=== PATIENT | female | born 1960 | race Two or more races ===

== ENCOUNTER 2016-08-09 16:10 | Outpatient (CLI) | payer MEDICAID | END 2016-08-09 16:11 | disposition critical access hospital (66) | DX: R06.00 Dyspnea, unspecified (principal) | CPT/HCPCS: A0425; A0427 ==

== ENCOUNTER 2016-08-09 16:35 | Observation (INO) | payer MEDICAID ==
[2016-08-09] MEDS ORDERED: DEXAMETHASONE 10 MG/ML VIAL PO STA (17:06)
[2016-08-09] MEDS ORDERED: DEXAMETHASONE 10 MG/ML VIAL ONE ×2 (17:12)
[2016-08-09] MEDS ORDERED: ALBUTEROL NEB 2.5 MG/3 ML INH ONE ×3 (17:18→19:20)
[2016-08-09] MEDS: ALBUTEROL NEB 2.5 MG/3 ML INH STA ×2 (17:29→17:47)
[2016-08-09] MEDS ORDERED: ALBUTEROL NEB 2.5 MG/3 ML INH STA ×2 (18:51→19:24)
[2016-08-09] MEDS ORDERED: SODIUM CHLORIDE FLUSH 0.9% 10 ML SYRINGE IVP PRN (20:32)
[2016-08-09] MEDS: SODIUM CHLORIDE FLUSH 0.9% 10 ML SYRINGE IVP SCH (21:57)
[2016-08-09] MEDS: INSULIN ASPART 300 UNIT/3 ML PEN SUBQ SCH (22:34)
[2016-08-09] MEDS: IPRATROPIUM/ALBUTEROL 3 ML NEB INH SCH (22:56)
[2016-08-09] MEDS ORDERED: BENZOCAINE/MENTHOL LOZENGE MM PRN (23:05)
[2016-08-10] MEDS: ALBUTEROL NEB 2.5 MG/3 ML INH PRN ×3 (01:00→10:23)
[2016-08-10] MEDS: SODIUM CHLORIDE FLUSH 0.9% 10 ML SYRINGE IVP SCH ×2 (06:11→14:13)
[2016-08-10] MEDS: IPRATROPIUM/ALBUTEROL 3 ML NEB INH SCH ×3 (07:22→15:50)
[2016-08-10] MEDS ORDERED: predniSONE 20 MG TABLET PO SCH (08:00)
[2016-08-10] MEDS: INSULIN ASPART 300 UNIT/3 ML PEN SUBQ SCH ×2 (08:49→11:55)
[2016-08-10] MEDS ORDERED: POLYETHYLENE GLYCOL 3350 17 GM PACKET PO SCH (09:00)
[2016-08-10] MEDS ORDERED: ENOXAPARIN 40 MG/0.4 ML SYRINGE SUBQ SCH (09:00)
== END 2016-08-10 09:00 | disposition home or self-care (01) ==
DX: J45.901 Unspecified asthma with (acute) exacerbation (principal); I10 Essential (primary) hypertension; E03.9 Hypothyroidism, unspecified; E11.9 Type 2 diabetes mellitus without complications; Z77.22 Contact with and (suspected) exposure to environmental tobacco smoke (acute) (chronic); Z79.51 Long term (current) use of inhaled steroids; Z79.899 Other long term (current) drug therapy
CPT/HCPCS: 36415; 71020; 80053; 82803; 83036; 83690; 84484; 85025; 93005; 93010; 94640; 96372; 99283; 99284; A9270; G0378; J1650; J7512; J7613; J7620

== ENCOUNTER 2016-08-31 13:15 | Outpatient (CLI) | payer MEDICAID | END 2016-08-31 13:30 | disposition home or self-care (01) | DX: R07.89 Other chest pain (principal) ==

== ENCOUNTER 2016-09-11 02:42 | Outpatient (CLI) | payer MEDICAID | END 2016-09-11 02:43 | disposition critical access hospital (66) | LOC: EMS 02:42 | PROVIDERS: ATTEND Surgery | DX: R06.00 Dyspnea, unspecified (principal) | CPT/HCPCS: A0425; A0427 ==

== ENCOUNTER 2016-09-11 03:02 | Inpatient (IN) | payer MEDICAID ==
[2016-09-11] MEDS ORDERED: MORPHINE 2 MG/ML SYRINGE IVP PRN (05:00)
[2016-09-11] MEDS ORDERED: oxyCODONE 5 MG TABLET PO PRN (05:00)
[2016-09-11] MEDS ORDERED: IPRATROPIUM/ALBUTEROL 3 ML NEB INH PRN (05:00)
[2016-09-11] MEDS ORDERED: ZOLPIDEM 5 MG TABLET PO PRN (05:00)
[2016-09-11] MEDS ORDERED: ACETAMINOPHEN 325 MG TABLET PO PRN (05:00)
[2016-09-11] MEDS ORDERED: LEVALBUTEROL 1.25 MG INH PRN (05:33)
[2016-09-11] MEDS: IPRATROPIUM/ALBUTEROL 3 ML NEB INH SCH ×4 (05:39→16:48)
[2016-09-11] MEDS ORDERED: IOPAMIDOL-300 100 ML VIAL IVP ONE (07:02)
[2016-09-11] MEDS: SODIUM CHLORIDE FLUSH 0.9% 10 ML SYRINGE IVP SCH ×3 (07:39→21:44)
[2016-09-11] MEDS: methylPREDNISolone SUCCINATE 40 MG/ML VIAL IVP SCH ×3 (07:39→21:43)
[2016-09-11] MEDS: PANTOPRAZOLE 40 MG TABLET PO SCH (07:39)
[2016-09-11] MEDS: LEVOTHYROXINE 125 MCG TABLET PO SCH (07:40)
[2016-09-11] MEDS ORDERED: INSULIN ASPART 300 UNIT/3 ML PEN SUBQ SCH ×3 (08:00→12:00)
[2016-09-11] MEDS: ENOXAPARIN 40 MG/0.4 ML SYRINGE SUBQ SCH ×2 (08:15→08:27)
[2016-09-11] MEDS: LISINOPRIL 5 MG TABLET PO SCH (08:15)
[2016-09-11] MEDS: POLYETHYLENE GLYCOL 3350 17 GM PACKET PO SCH (08:23)
[2016-09-11] MEDS ORDERED: DOXYCYCLINE 100 MG TABLET PO SCH (09:00)
[2016-09-11] MEDS: SODIUM CHLORIDE INHALATION 3 ML NEB INH PRN ×2 (11:01→23:05)
[2016-09-11] MEDS: INSULIN ASPART 300 UNIT/3 ML PEN SUBQ SCH ×3 (12:01→21:43)
[2016-09-11] MEDS ORDERED: SODIUM CHLORIDE 0.9% 250 ML IV ONE (15:03)
[2016-09-11] MEDS: cefTRIAXone 1 GM in SODIUM CHLORIDE 0.9% MINIBAG 100 ML IV SCH (15:16)
[2016-09-11] MEDS: SODIUM CHLORIDE FLUSH 0.9% 10 ML SYRINGE IVP PRN ×3 (15:16→16:55)
[2016-09-11] MEDS: AZITHROMYCIN INJ 500 MG in SODIUM CHLORIDE 0.9% 250 ML IV SCH (16:21)
[2016-09-11] MEDS: ONDANSETRON 4 MG/2 ML VIAL IVP PRN (16:52)
[2016-09-11] MEDS: ATORVASTATIN 40 MG TABLET PO SCH (21:41)
[2016-09-11] MEDS: diazePAM 5 MG TABLET PO SCH ×2 (21:41)
[2016-09-11] MEDS: MONTELUKAST 10 MG TABLET PO SCH (21:42)
[2016-09-11] MEDS: INSULIN GLARGINE 300 UNIT/3 ML PEN SUBQ SCH (21:42)
[2016-09-11] MEDS: LEVALBUTEROL 1.25 MG INH PRN (23:05)
[2016-09-12] MEDS: IPRATROPIUM/ALBUTEROL 3 ML NEB INH SCH ×4 (04:00→19:30)
[2016-09-12] MEDS: methylPREDNISolone SUCCINATE 40 MG/ML VIAL IVP SCH ×3 (06:10→20:35)
[2016-09-12] MEDS: SODIUM CHLORIDE FLUSH 0.9% 10 ML SYRINGE IVP SCH ×3 (06:10→17:54)
[2016-09-12] MEDS: LEVOTHYROXINE 125 MCG TABLET PO SCH (06:11)
[2016-09-12] MEDS: PANTOPRAZOLE 40 MG TABLET PO SCH (06:14)
[2016-09-12] MEDS: INSULIN ASPART 300 UNIT/3 ML PEN SUBQ SCH ×4 (08:17→20:36)
[2016-09-12] MEDS: LISINOPRIL 5 MG TABLET PO SCH (08:53)
[2016-09-12] MEDS: ENOXAPARIN 40 MG/0.4 ML SYRINGE SUBQ SCH (08:54)
[2016-09-12] MEDS: POLYETHYLENE GLYCOL 3350 17 GM PACKET PO SCH (08:55)
[2016-09-12] MEDS: cefTRIAXone 1 GM in SODIUM CHLORIDE 0.9% MINIBAG 100 ML IV SCH (08:57)
[2016-09-12] MEDS: LEVALBUTEROL 1.25 MG INH PRN (11:35)
[2016-09-12] MEDS: SODIUM CHLORIDE INHALATION 3 ML NEB INH PRN (11:35)
[2016-09-12] MEDS ORDERED: INSULIN ASPART 300 UNIT/3 ML PEN SUBQ SCH (13:30)
[2016-09-12] MEDS: AZITHROMYCIN INJ 500 MG in SODIUM CHLORIDE 0.9% 250 ML IV SCH (16:44)
[2016-09-12] MEDS: ONDANSETRON 4 MG/2 ML VIAL IVP PRN (17:54)
[2016-09-12] MEDS: LORazepam 2 MG/ML SYRINGE IVP PRN (20:35)
[2016-09-12] MEDS: MONTELUKAST 10 MG TABLET PO SCH (20:35)
[2016-09-12] MEDS: SODIUM CHLORIDE FLUSH 0.9% 10 ML SYRINGE IVP PRN (20:35)
[2016-09-12] MEDS: guaiFENesin/CODEINE 5 ML UDC PO PRN (20:35)
[2016-09-12] MEDS: ATORVASTATIN 40 MG TABLET PO SCH (20:36)
[2016-09-12] MEDS: INSULIN GLARGINE 300 UNIT/3 ML PEN SUBQ SCH (20:37)
[2016-09-13] MEDS: IPRATROPIUM/ALBUTEROL 3 ML NEB INH PRN ×3 (01:10→20:38)
[2016-09-13] MEDS: SODIUM CHLORIDE FLUSH 0.9% 10 ML SYRINGE IVP SCH ×3 (06:06→16:46)
[2016-09-13] MEDS: methylPREDNISolone SUCCINATE 40 MG/ML VIAL IVP SCH ×3 (06:06→21:42)
[2016-09-13] MEDS: LEVOTHYROXINE 125 MCG TABLET PO SCH (06:55)
[2016-09-13] MEDS: guaiFENesin/CODEINE 5 ML UDC PO PRN ×3 (06:55→21:42)
[2016-09-13] MEDS: PANTOPRAZOLE 40 MG TABLET PO SCH (06:55)
[2016-09-13] MEDS: IPRATROPIUM/ALBUTEROL 3 ML NEB INH SCH ×3 (08:00→20:56)
[2016-09-13] MEDS: INSULIN ASPART 300 UNIT/3 ML PEN SUBQ SCH ×4 (08:55→21:45)
[2016-09-13] MEDS: cefTRIAXone 1 GM in SODIUM CHLORIDE 0.9% MINIBAG 100 ML IV SCH (08:57)
[2016-09-13] MEDS: ENOXAPARIN 40 MG/0.4 ML SYRINGE SUBQ SCH (08:58)
[2016-09-13] MEDS: POLYETHYLENE GLYCOL 3350 17 GM PACKET PO SCH (08:58)
[2016-09-13] MEDS: LISINOPRIL 5 MG TABLET PO SCH (09:02)
[2016-09-13] MEDS: LORazepam 2 MG/ML SYRINGE IVP PRN ×2 (09:33→18:06)
[2016-09-13] MEDS: SODIUM CHLORIDE FLUSH 0.9% 10 ML SYRINGE IVP PRN (09:33)
[2016-09-13] MEDS: ONDANSETRON 4 MG/2 ML VIAL IVP PRN (16:44)
[2016-09-13] MEDS: AZITHROMYCIN INJ 500 MG in SODIUM CHLORIDE 0.9% 250 ML IV SCH (16:44)
[2016-09-13] MEDS: ATORVASTATIN 40 MG TABLET PO SCH (21:42)
[2016-09-13] MEDS: MONTELUKAST 10 MG TABLET PO SCH (21:42)
[2016-09-13] MEDS: INSULIN GLARGINE 300 UNIT/3 ML PEN SUBQ SCH (21:45)
[2016-09-14] MEDS: IPRATROPIUM/ALBUTEROL 3 ML NEB INH SCH ×6 (00:53→20:11)
[2016-09-14] MEDS: IPRATROPIUM/ALBUTEROL 3 ML NEB INH PRN (02:33)
[2016-09-14] MEDS: guaiFENesin/CODEINE 5 ML UDC PO PRN (03:46)
[2016-09-14] MEDS: LEVOTHYROXINE 125 MCG TABLET PO SCH (06:07)
[2016-09-14] MEDS: methylPREDNISolone SUCCINATE 40 MG/ML VIAL IVP SCH ×3 (06:07→20:23)
[2016-09-14] MEDS: SODIUM CHLORIDE FLUSH 0.9% 10 ML SYRINGE IVP SCH ×4 (06:08→20:33)
[2016-09-14] MEDS: PANTOPRAZOLE 40 MG TABLET PO SCH (06:08)
[2016-09-14] MEDS: cefTRIAXone 1 GM in SODIUM CHLORIDE 0.9% MINIBAG 100 ML IV SCH (08:13)
[2016-09-14] MEDS: LISINOPRIL 5 MG TABLET PO SCH (08:20)
[2016-09-14] MEDS: INSULIN ASPART 300 UNIT/3 ML PEN SUBQ SCH ×4 (08:21→20:31)
[2016-09-14] MEDS: ENOXAPARIN 40 MG/0.4 ML SYRINGE SUBQ SCH (08:22)
[2016-09-14] MEDS: POLYETHYLENE GLYCOL 3350 17 GM PACKET PO SCH (08:23)
[2016-09-14] MEDS: AZITHROMYCIN INJ 500 MG in SODIUM CHLORIDE 0.9% 250 ML IV SCH (16:48)
[2016-09-14] MEDS: ONDANSETRON 4 MG/2 ML VIAL IVP PRN (16:53)
[2016-09-14] MEDS ORDERED: CALCIUM CARBONATE CHEW 500 MG TABLET PO PRN (18:43)
[2016-09-14] MEDS: LORazepam 2 MG/ML SYRINGE IVP PRN (19:28)
[2016-09-14] MEDS ORDERED: PROCHLORPERAZINE 10 MG/2 ML VIAL IVP PRN (20:16)
[2016-09-14] MEDS ORDERED: LORazepam 2 MG/ML SYRINGE IVP PRN (20:16)
[2016-09-14] MEDS: MONTELUKAST 10 MG TABLET PO SCH (20:24)
[2016-09-14] MEDS: ATORVASTATIN 40 MG TABLET PO SCH (20:24)
[2016-09-14] MEDS: INSULIN GLARGINE 300 UNIT/3 ML PEN SUBQ SCH (20:25)
[2016-09-15] MEDS: IPRATROPIUM/ALBUTEROL 3 ML NEB INH PRN (00:40)
[2016-09-15] MEDS: PANTOPRAZOLE 40 MG TABLET PO SCH (06:17)
[2016-09-15] MEDS: LEVOTHYROXINE 125 MCG TABLET PO SCH (06:17)
[2016-09-15] MEDS: methylPREDNISolone SUCCINATE 40 MG/ML VIAL IVP SCH (06:17)
[2016-09-15] MEDS: SODIUM CHLORIDE FLUSH 0.9% 10 ML SYRINGE IVP SCH (06:18)
[2016-09-15] MEDS: IPRATROPIUM/ALBUTEROL 3 ML NEB INH SCH (07:30)
[2016-09-15] MEDS: POLYETHYLENE GLYCOL 3350 17 GM PACKET PO SCH (08:49)
[2016-09-15] MEDS: ENOXAPARIN 40 MG/0.4 ML SYRINGE SUBQ SCH (08:49)
[2016-09-15] MEDS: cefTRIAXone 1 GM in SODIUM CHLORIDE 0.9% MINIBAG 100 ML IV SCH (08:49)
[2016-09-15] MEDS: LISINOPRIL 5 MG TABLET PO SCH (08:54)
[2016-09-15] MEDS: INSULIN ASPART 300 UNIT/3 ML PEN SUBQ SCH (08:59)
== END 2016-09-15 11:00 | disposition home or self-care (01) | DRG 189 ==
DX: J96.21 Acute and chronic respiratory failure with hypoxia (principal); J18.9 Pneumonia, unspecified organism; J45.901 Unspecified asthma with (acute) exacerbation; E11.9 Type 2 diabetes mellitus without complications; I10 Essential (primary) hypertension; E78.5 Hyperlipidemia, unspecified; F41.9 Anxiety disorder, unspecified; Z79.84 Long term (current) use of oral hypoglycemic drugs; E03.9 Hypothyroidism, unspecified; Z90.710 Acquired absence of both cervix and uterus; Z83.3 Family history of diabetes mellitus; Z82.49 Family history of ischemic heart disease and other diseases of the circulatory system; Z77.22 Contact with and (suspected) exposure to environmental tobacco smoke (acute) (chronic)

== ENCOUNTER 2016-11-26 10:40 | Outpatient (CLI) | payer MEDICAID | END 2016-11-26 10:41 | disposition critical access hospital (66) | LOC: EMS 10:40 | PROVIDERS: ATTEND Surgery | DX: R06.00 Dyspnea, unspecified (principal) | CPT/HCPCS: A0425; A0427 ==

== ENCOUNTER 2016-11-26 11:00 | Inpatient (IN) | payer MEDICAID ==
[2016-11-26] MEDS ORDERED: ALBUTEROL NEB 2.5 MG/3 ML INH STA ×2 (11:05→12:18)
--- NOTE | 2016-11-26 11:07 | ED Physician Documentation ---
History of Present Illness - Stated complaint Stated Complaint: ASTHMA - Additonal information Additional information: hx from pt 56 f hx severe asthma, admitted in the past, never intubated, uses home O2 4 L 4 days inc soa trigger unknown - no fever cough smoke seasonal all etc using home neb q2 s relief given duoneb and solumedrol en route - still tight no leg edema Review of Systems Constitutional: denies: Fever, Chills Cardiac: denies: Chest pain / pressure Respiratory: reports: Dyspnea, Wheezing. denies: Cough GI: denies: Vomiting Musculoskeletal: denies: Extremity swelling Endocrine: denies: Easy bruising / bleeding Immunocompromised: denies: Immunocompromised PD PAST MEDICAL HISTORY - Past Medical History Cardiovascular: Hypertension, High cholesterol Respiratory: Asthma Endocrine/Autoimmune: Type 2 diabetes, HyPOthyroidism HEENT: Chronic sinusitis - Past Surgical History Past Surgical History: Yes /[employer]: Hysterectomy HEENT: Rhinoplasty - Present Medications Home Medications: Ambulatory Orders Medication Instructions Recorded Confirmed Ipratropium/Albuterol Sulfate 3 ml IH QID PRN 08/10/16 11/26/16 [Iprat-Albut 0.5-3(2.5) mg/3 ml] Levothyroxine [Synthroid] 125 mcg PO QDAC 08/10/16 11/26/16 Lisinopril [Prinivil] 5 mg PO DAILY 08/10/16 11/26/16 Metformin HCl [Metformin HCl ER] 1,000 mg PO BID 08/10/16 11/26/16 Montelukast [Singulair] 10 mg PO QPM 08/10/16 11/26/16 Pravastatin Sodium [Pravachol] 20 mg PO QPM 08/10/16 11/26/16 Albuterol 2.5 mg PO BID PRN 09/11/16 11/26/16 Albuterol Sulf [Ventolin Hfa 2 puffs INH Q4H PRN 09/11/16 11/26/16 Inhaler] Budesonide [Pulmicort Flexhaler] 180 mcg INH BID 09/11/16 11/26/16 Lorazepam 0.5 mg PO PRN PRN #30 tablet 09/15/16 11/26/16 - Allergies Allergies/Adverse Reactions: Allergies Allergy/AdvReac Type Severity Reaction Status Date / Time Penicillins AdvReac Unknown Verified 09/05/14 23:56 - Social History Does the pt smoke?: No Smoking Status: Never smoker Does the pt drink ETOH?: No Does the pt have substance abuse?: No - Immunizations Immunizations are current?: Yes - POLST Patient has POLST: No POLST Status: Full Code PD ED PE NORMAL - Vitals Vital signs reviewed: Yes (hypoxic) - General General: Alert and oriented X 3 - HEENT HEENT: PERRL - Neck Neck: Supple, no meningeal sign - Cardiac Cardiac: RRR (tachy) - Respiratory Respiratory: No: Clear bilaterally (very tight insp exp wheeze) - Abdomen Abdomen: Soft, Non tender - Extremities Extremities: No edema - Neuro Neuro: Alert and oriented X 3 Results - Vitals Vitals: Vital Signs - 24 hr 11/26/16 11/26/16 11/26/16 11:01 11:20 12:15 Temperature 37.4 C Heart Rate 119 H 109 H 106 H Respiratory 22 28 H 22 Rate Blood Pressure 188/91 H O2 Saturation 85 L 95 11/26/16 11/26/16 12:30 13:40 Temperature Heart Rate 110 H 109 H Respiratory 24 20 Rate Blood Pressure 115/67 O2 Saturation 94 Oxygen O2 Source Nasal cannula Oxygen Flow Rate 4 PD MEDICAL DECISION MAKING - ED course ED course: dec wheezing still SOA and tachycardic with exertion will admit labs pending Departure - Departure Disposition: 66 [facility] DC/[facility] Clinical Impression: Asthma exacerbation Condition: Fair
[2016-11-26] MEDS ORDERED: ALBUTEROL NEB 2.5 MG/3 ML INH ONE ×2 (11:15→12:29)
--- NOTE | 2016-11-26 12:45 | XRAY Preliminary Report ---
Exam: XR Chest 1 View IMPRESSION: Negative single view chest. [facility] SITE ID: [id number]
--- NOTE | 2016-11-26 12:48 | XRAY Report ---
EXAM: CHEST RADIOGRAPHY EXAM DATE: 11/26/2016 12:06 PM. CLINICAL HISTORY: SOB for 4 days. COMPARISON: 08/09/2016. TECHNIQUE: 1 view. FINDINGS: Lungs/Pleura: There is again a calcified nodule in the left mid lung zone, 6 mm, a calcified granulom a;. Otherwise, no new focal opacities evident. No pleural effusion. No pneumothorax. Mediastinum: Within exam limitations, cardiomediastinal contour is normal. IMPRESSION: Negative single view chest. [facility] Referring Provider Line: [phone] SITE ID: [id number]
[2016-11-26] MEDS ORDERED: ALBUTEROL NEB 2.5 MG/3 ML INH PRN (14:27)
[2016-11-26] MEDS ORDERED: ACETAMINOPHEN 325 MG TABLET PO PRN (14:27)
[2016-11-26] MEDS ORDERED: SODIUM CHLORIDE FLUSH 0.9% 10 ML SYRINGE IVP PRN (14:27)
[2016-11-26] MEDS ORDERED: HYDROcod/ACETAM 5/325 MG TABLET PO PRN (14:27)
[2016-11-26] MEDS ORDERED: ONDANSETRON 4 MG/2 ML VIAL IVP PRN (14:27)
[2016-11-26 14:33] LABS: BASOPHILS % (AUTO) 0.1 %; EOSINOPHILS % (AUTO) 0.2 %; HCT - HEMATOCRIT 38.9 % (37.0-47.0); HGB - HEMOGLOBIN 12.7 g/dL (12.0-16.0); LYMPHOCYTES # (AUTO) 0.4 10^3/uL (1.5-3.5); LYMPHOCYTES % (AUTO) 3.2 %; MEAN CORPUSCULAR HEMOGLOBIN 28.4 pg (27.0-31.0); MEAN CORPUSCULAR HGB CONC 32.8 g/dL (32.0-36.0); MEAN CORPUSCULAR VOLUME 86.6 fL (81.0-99.0); MEAN PLATELET VOLUME 8.3 fL (7.9-10.8); MONOCYTES # (AUTO) 0.1 10^3/uL (0.0-1.0); MONOCYTES % (AUTO) 0.7 %; NEUTROPHILS # (AUTO) 12.3 10^3/uL (1.5-6.6); NEUTROPHILS % (AUTO) 95.8 %; RED BLOOD COUNT 4.49 10^6/uL (4.20-5.40); RED CELL DISTRIBUTION WIDTH 14.9 % (12.0-15.0); UNCORRECTED WHITE BLOOD COUNT 12.8 x10^3/uL; WHITE BLOOD COUNT 12.8 x10^3/uL (4.8-10.8)
[2016-11-26 14:46] LABS: ALBUMIN/GLOBULIN RATIO 1.3 (1.0-2.2); BILIRUBIN,TOTAL 0.4 mg/dL (0.2-1.0); CALCIUM 9.1 mg/dL (8.5-10.3); CREATININE 0.7 mg/dL (0.4-1.0); POTASSIUM 3.8 mmol/L (3.5-5.0); TOTAL PROTEIN 7.5 g/dL (6.7-8.2)
[2016-11-26] MEDS: IPRATROPIUM/ALBUTEROL 3 ML NEB INH PRN ×2 (16:00→19:45)
--- NOTE | 2016-11-26 16:00 | HISTORY & PHYSICAL EXAMINATION ---
DATE OF ADMISSION: 11/26/2016 PRIMARY CARE PROVIDER: Nabor Garzon PA-C. CHIEF COMPLAINT: Shortness of breath. IDENTIFYING INFORMATION: The patient is the primary historian and appears cogent, consistent and thor ough. She pauses frequently to catch her breath even with the oxygen she has on. The patient's histor y is supplemented by the handoff by Dr. Carcamo, the emergency department physician, as well as person al review of past medical records and the data collected during this visit. The patient's exam is als o used in evaluation of this person and preparation of this document. HISTORY OF PRESENT ILLNESS: The patient about 2 days ago she started getting worse and needing her in haler more, was up during the night, yesterday was bad, as well, and then today she felt chest pressu re when she was up and she was using her inhaler 2 or 3 vials together just to get some relief with h er nebulizer. REVIEW OF SYSTEMS: She denies any fever or chills. She has had some pressure in the chest. She has rader d a dry cough. The patient denies any vomiting and no diarrhea. The patient's extremities were not hu rting. The patient denies any syncopal or near syncopal episodes. PAST MEDICAL HISTORY: Remarkable for hypertension, high cholesterol, asthma, type 2 diabetes, hypothy roidism, chronic sinus problems and chronic sinusitis. SURGERIES: Hysterectomy and rhinoplasty. MEDICATIONS: 1. Duoneb 3 mL q.i.d. as needed. 2. Levoxyl 125 mcg a day. 3. Lisinopril 5 mg a day. 4. Metformin 1000 mg twice a day. 5. Pravastatin 20 mg a day. 6. Albuterol 2.5 b.i.d. 7. Albuterol sulfate 2 puffs inhaled p.r.n. spacers. 8. Budesonide 180 mcg inhaled b.i.d. 9. Lorazepam 0.5 p.r.n., #30. ALLERGIES: PENICILLIN ONLY. Patient is a never smoker, rarely drank any alcohol. No illicit drugs. The patient was born and raise d in [place]. She moved here because they had a daughter who was stationed here in the [employer]. She has 3 children, a daughter and 2 boys. FAMILY HISTORY: Positive for diabetes, heart disease. No cancer that she knows of. PHYSICAL EXAMINATION: VITAL SIGNS: 37.4, 119, 22, 188/91, 85% room air saturation. ENT: Eyes within normal limits. PERRLA, nonicteric. Mouth and throat: Somewhat dry mucous membranes. Tongue coated, but does not appear to be thrush. She is having difficulty with spirometer which could be due to the dry mouth. NECK: No lymphadenopathy, no thyromegaly. CHEST: Chest wall is nontender, symmetric. No breast exam done. HEART: Sinus tachycardia. No murmurs, rubs, clicks. LUNGS: Decreased air movement, few wheezes. Prolonged expiration. ABDOMEN: Thick abdominal wall, soft, nontender. Normal bowel sounds. No hepatosplenomegaly. RECTAL/GENITAL EXAM: Not done. EXTREMITIES: Without edema. VASCULAR EXAM: 1+ pulses posterior tibial bilateral. NEURO: Cognitive intact. Cranial nerves intact. Motor intact. SKIN: She describes a yayo type rash under breasts and groin. The patient in the emergency department received multiple treatments of double strength Albuterol wit h minimal relief. She also received steroids in the ambulance and she is still desaturating with 4 li ters on. The patient's chest x-ray is unremarkable. LABORATORY DATA: The lab work is pending. IMPRESSION: 1. Status asthmaticus. 2. Acute on chronic respiratory failure. 3. Chronic obstructive pulmonary disease. 4. Diabetes, presumptively uncontrolled. 5. Hypertension. 6. Hypothyroid. SUMMARY: This is a 56-year-old female with a 2-day history of increased shortness of breath. She has chronic respiratory failure on 4 liters of oxygen at home since this past September. The patient has a past medical history also of hypertension and diabetes, noninsulin dependent, and hypothyroidism. The [facility] is admitted to the hospital for the status asthmaticus and acute on chronic respiratory failure. DISCUSSION AND DECISION MAKIN. The status asthmaticus to be broken with repeated beta-agonists. 2. The acute on chronic respiratory failure will be treated with the steroids and more beta-agonists, oxygen as needed. 3. Chronic obstructive pulmonary disease is underlying and may need further diagnostics such as pulmo nary function tests. 4. The diabetes will be approached with a hemoglobin A1c, carb control diet and sliding scale insulin . 5. The patient's hypertension will be addressed with her present medications. 6. Hypothyroid, she will be continued on her present medication for the time being. HOSPITAL ISSUES: 1. CODE STATUS: SHE IS FULL CODE. 2. VTE prophylaxis which is going to be enoxaparin subcutaneous. 3. Diet which will be carb controlled. 4. Activity which will be limited to out of bed and guided by respiratory therapy and her improvement . 5. Tubes and lines which will be just an IV at the moment. 6. Admission status: She is hospital status given the severity of the underlying disease, as well as the acute status asthmaticus and acute on chronic respiratory failure, and needs at least 2 nights fo r assurance of improvement sufficient for safe discharge. 7. Length of stay estimate: Three nights. 8. Disposition is expected to be home. JOB #: [id number] EXT JOB #:[id number]
[2016-11-26] MEDS: DOXYCYCLINE INJ 100 MG in SODIUM CHLORIDE 0.9% MINIBAG 100 ML IV SCH ×2 (16:39→22:38)
[2016-11-26] MEDS: SODIUM CHLORIDE 0.9% 1,000 ML IV SCH (16:40)
[2016-11-26] MEDS: methylPREDNISolone SUCCINATE 40 MG/ML VIAL IVP SCH (16:41)
[2016-11-26] MEDS: INSULIN ASPART 300 UNIT/3 ML PEN SUBQ SCH ×2 (17:44→22:11)
[2016-11-26 18:09] LABS: HEMOGLOBIN A1C 1.2 g/dL
[2016-11-26] MEDS ORDERED: INSULIN REGULAR HUMAN 100 UNIT/1 ML 10 ML MDV SUBQ SCH (21:38)
[2016-11-26] MEDS: PRAVASTATIN 10 MG TABLET PO SCH (22:11)
[2016-11-26] MEDS: MONTELUKAST 10 MG TABLET PO SCH (22:11)
[2016-11-26] MEDS: NYSTATIN CREAM 15 GM TUBE TOP SCH (22:13)
[2016-11-26] MEDS: SODIUM CHLORIDE FLUSH 0.9% 10 ML SYRINGE IVP SCH (22:16)
[2016-11-27] MEDS: LEVOTHYROXINE 125 MCG TABLET PO SCH (06:07)
[2016-11-27] MEDS: SODIUM CHLORIDE FLUSH 0.9% 10 ML SYRINGE IVP SCH ×3 (06:08→20:38)
[2016-11-27 06:17] LABS: BASOPHILS % (AUTO) 0.1 %; EOSINOPHILS % (AUTO) 0.1 %; LYMPHOCYTES % (AUTO) 7.3 %; MEAN CORPUSCULAR HEMOGLOBIN 28.2 pg (27.0-31.0); MEAN CORPUSCULAR HGB CONC 32.4 g/dL (32.0-36.0); MEAN CORPUSCULAR VOLUME 87.2 fL (81.0-99.0); MEAN PLATELET VOLUME 8.8 fL (7.9-10.8); MONOCYTES # (AUTO) 0.8 10^3/uL (0.0-1.0); MONOCYTES % (AUTO) 5.5 %; NEUTROPHILS # (AUTO) 12.3 10^3/uL (1.5-6.6); RED BLOOD COUNT 4.24 10^6/uL (4.20-5.40); RED CELL DISTRIBUTION WIDTH 14.9 % (12.0-15.0); UNCORRECTED WHITE BLOOD COUNT 14.1 x10^3/uL; WHITE BLOOD COUNT 14.1 x10^3/uL (4.8-10.8)
[2016-11-27 06:34] LABS: ALBUMIN/GLOBULIN RATIO 1.3 (1.0-2.2); BILIRUBIN,TOTAL 0.4 mg/dL (0.2-1.0); CALCIUM 9.8 mg/dL (8.5-10.3); CREATININE 0.6 mg/dL (0.4-1.0); MAGNESIUM 1.7 mg/dL (1.7-2.8); POTASSIUM 4.1 mmol/L (3.5-5.0)
[2016-11-27] MEDS: IPRATROPIUM/ALBUTEROL 3 ML NEB INH PRN ×4 (07:00→20:15)
[2016-11-27] MEDS: INSULIN ASPART 300 UNIT/3 ML PEN SUBQ SCH ×4 (08:39→20:27)
[2016-11-27] MEDS: INSULIN GLARGINE 300 UNIT/3 ML PEN SUBQ SCH ×2 (08:40→20:28)
[2016-11-27] MEDS: ENOXAPARIN 40 MG/0.4 ML SYRINGE SUBQ SCH ×2 (08:40→08:47)
[2016-11-27] MEDS: DOXYCYCLINE INJ 100 MG in SODIUM CHLORIDE 0.9% MINIBAG 100 ML IV SCH ×2 (08:40→20:29)
[2016-11-27] MEDS: LISINOPRIL 5 MG TABLET PO SCH (08:41)
[2016-11-27] MEDS: methylPREDNISolone SUCCINATE 40 MG/ML VIAL IVP SCH ×2 (08:41→20:28)
[2016-11-27] MEDS: NYSTATIN CREAM 15 GM TUBE TOP SCH ×2 (08:43→20:38)
[2016-11-27] MEDS ORDERED: POLYETHYLENE GLYCOL 3350 17 GM PACKET PO SCH (09:00)
--- NOTE | 2016-11-27 10:27 | PROVIDER PROGRESS NOTE ---
Assessment/Plan - Problem List (1) Acute and chronic respiratory failure Qualifiers: Assessment/Plan: Loni has improved signifcantly and is tolerating 4 liters of O2. She still has poor to fair air movement. she needs continued nebs and steroids. (2) Diabetes type 2, uncontrolled Assessment/Plan: Glucose was up to 360 last grabiel. She was 225 this am. Counselled on DM with eating habits and lack of exercise. Will continue to monitor and supplement with insulin - Current Meds Current Meds: Current Medications Generic Name Dose Route Start Last Admin Trade Name Freq PRN Reason Stop Dose Admin Albuterol/Ipratropium 3 ml 11/26/16 14:27 11/27/16 07:00 Duoneb INH 3 ml Q4HR PRN Administration Wheezing Enoxaparin Sodium 40 mg 11/27/16 09:00 11/27/16 08:47 Lovenox SUBQ Not Given DAILY CHAKA Sodium Chloride 1,000 mls @ 50 mls/hr 11/26/16 16:00 11/26/16 16:40 Normal Saline 0.9% IV 50 mls/hr .Q20H CHAKA Administration Doxycycline Hyclate 100 mg/ 100 mls @ 100 mls/hr 11/26/16 16:00 11/27/16 08:40 Sodium Chloride IV 100 mls/hr BID CHAKA Administration Insulin Aspart 2 - 10 unit 11/27/16 08:26 11/27/16 08:39 Novolog SUBQ 4 unit 0800,1200,1700,2100 CHAKA Administration Protocol Insulin Glargine 5 unit 11/27/16 09:00 11/27/16 08:40 Lantus Solostar SUBQ 5 unit BID CHAKA Administration Levothyroxine Sodium 125 mcg 11/27/16 07:00 11/27/16 06:07 Synthroid PO 125 mcg QDAC CHAKA Administration Lisinopril 5 mg 11/27/16 09:00 11/27/16 08:41 Zestril PO 5 mg DAILY CHAKA Administration Methylprednisolone 40 mg 11/26/16 16:00 11/27/16 08:41 Solu-Medrol (40mg Vial) IVP 40 mg BID CHAKA Administration Montelukast Sodium 10 mg 11/26/16 21:00 11/26/16 22:11 Singulair PO 10 mg QPM CHAKA Administration Nystatin 1 applic 11/26/16 21:00 11/27/16 08:43 Mycostatin Cream TOP 1 applic BID CHAKA Administration Polyethylene Glycol 17 gm 11/27/16 09:00 11/27/16 08:43 Miralax PO Not Given DAILY CHAKA Pravastatin Sodium 20 mg 11/26/16 21:00 11/26/16 22:11 Pravachol PO 20 mg QPM CHAKA Administration Sodium Chloride 10 ml 11/26/16 22:00 11/27/16 06:08 Normal Saline Flush 0.9% IVP Not Given Q8HR CHAKA - Lab Result Fish Bone Diagrams: 11/27/16 05:26 11/27/16 05:26 - Additional Planning My Orders: My Active Orders 11/26/16 14:59 RT [Nebulizer/MDI Tx.] [RC] QID 11/26/16 16:37 Blood Glucose Checks - Eating [RC] 0800,1200,1700,2100 Initiate Hypoglycemia Protocol [RC] .protocol 11/26/16 21:00 Montelukast [Singulair] 10 mg PO QPM Nystatin Cream [Mycostatin Cream] 1 applic TOP BID Pravastatin [Pravachol] 20 mg PO QPM 11/27/16 07:00 Levothyroxine [Synthroid] 125 mcg PO QDAC 11/27/16 08:26 Insulin Aspart [NovoLOG] 2 - 10 unit SUBQ 0800,1200,1700,2100 11/27/16 09:00 Lisinopril [Zestril] 5 mg PO DAILY 11/28/16 10:23 O2 [Oxygen Desat. Study w/Exercise] [RC] .ONCE Subjective - Subjective Patient Reports: Feeling Better, Resting Comfortably, Shortness of Breath Nursing Reports: Shortness of Breath Objective Vital Signs: Vital Signs - 24 hr 11/26/16 11/26/16 11/26/16 16:00 16:58 19:45 Temperature 37.1 C 36.8 C Heart Rate 103 H 110 H Heart Rate [ 109 H 109 H Brachial] Respiratory 18 18 20 Rate Blood Pressure 110/73 126/83 H [Left Brachial artery] O2 Saturation 93 96 11/27/16 11/27/16 11/27/16 00:16 05:28 07:00 Temperature 36.8 C 36.7 C Heart Rate 85 Heart Rate [ 103 H 78 Brachial] Respiratory 18 20 18 Rate Blood Pressure 113/69 114/65 [Left Brachial artery] O2 Saturation 95 98 11/27/16 08:43 Temperature 36.1 C L Heart Rate Heart Rate [ 82 Brachial] Respiratory 18 Rate Blood Pressure 116/72 [Left Brachial artery] O2 Saturation 95 Oxygen O2 Source Room air I&O (Last 24 Hrs): Intake and Output Totals x24h 11/25/16 11/26/16 11/27/16 23:59 23:59 23:59 Intake Total 619 1211 Balance 619 1211 General: Alert, Oriented x3, Cooperative HEENT: PERRLA, EOMI Neck: No JVD, No thyromegaly Neuro: Alert, Oriented Times 3 Cardiovascular: Regular rate, Other (She has 1/6 sys murmur no change in pulses. ) Abdomen: Soft, No tenderness - Results Results: Laboratory Results WBC 14.1 x10^3/uL (4.8-10.8) H 11/27/16 05:26 RBC 4.24 10^6/uL (4.20-5.40) 11/27/16 05:26 Hgb 12.0 g/dL (12.0-16.0) 11/27/16 05:26 Hct 37.0 % (37.0-47.0) 11/27/16 05:26 MCV 87.2 fL (81.0-99.0) 11/27/16 05:26 MCH 28.2 pg (27.0-31.0) 11/27/16 05:26 MCHC 32.4 g/dL (32.0-36.0) 11/27/16 05:26 RDW 14.9 % (12.0-15.0) 11/27/16 05:26 Plt Count 277 10^3/uL (130-450) 11/27/16 05:26 MPV 8.8 fL (7.9-10.8) 11/27/16 05:26 Neut # 12.3 10^3/uL (1.5-6.6) H 11/27/16 05:26 Lymph # 1.0 10^3/uL (1.5-3.5) L 11/27/16 05:26 Towner # 0.8 10^3/uL (0.0-1.0) 11/27/16 05:26 Eos # 0.0 10^3/uL (0.0-0.7) 11/27/16 05:26 Baso # 0.0 10^3/uL (0.0-0.1) 11/27/16 05:26 Absolute Nucleated RBC 0.00 x10^3/uL 11/27/16 05:26 Nucleated RBCs 0.0 /100WBC 11/27/16 05:26 Sodium 137 mmol/L (135-145) 11/27/16 05:26 Potassium 4.1 mmol/L (3.5-5.0) 11/27/16 05:26 Chloride 103 mmol/L (101-111) 11/27/16 05:26 Carbon Dioxide 24 mmol/L (21-32) 11/27/16 05:26 Anion Gap 10.0 (6-13) 11/27/16 05:26 BUN 13 mg/dL (6-20) 11/27/16 05:26 Creatinine 0.6 mg/dL (0.4-1.0) 11/27/16 05:26 Estimated GFR (MDRD) 104 (>89) 11/27/16 05:26 Glucose 225 mg/dL (70-100) H 11/27/16 05:26 Glycated Hemoglobin 10.0 % (4.6-6.2) H 11/26/16 14:29 Estim Average Glucose 240 (70-100) H 11/26/16 14:29 Calcium 9.8 mg/dL (8.5-10.3) 11/27/16 05:26 Magnesium 1.7 mg/dL (1.7-2.8) 11/27/16 05:26 Total Bilirubin 0.4 mg/dL (0.2-1.0) 11/27/16 05:26 AST 25 IU/L (10-42) 11/27/16 05:26 ALT 29 IU/L (10-60) 11/27/16 05:26 Alkaline Phosphatase 55 IU/L (42-121) 11/27/16 05:26 Total Protein 7.0 g/dL (6.7-8.2) 11/27/16 05:26 Albumin 4.0 g/dL (3.2-5.5) 11/27/16 05:26 Globulin 3.0 g/dL (2.1-4.2) 11/27/16 05:26 Albumin/Globulin Ratio 1.3 (1.0-2.2) 11/27/16 05:26 Lipase 22 U/L (22-51) 11/26/16 14:29
[2016-11-27] MEDS: SODIUM CHLORIDE 0.9% 1,000 ML IV SCH ×2 (13:48→19:14)
[2016-11-27] MEDS: PRAVASTATIN 10 MG TABLET PO SCH (20:29)
[2016-11-27] MEDS: MONTELUKAST 10 MG TABLET PO SCH (20:29)
[2016-11-28] MEDS: IPRATROPIUM/ALBUTEROL 3 ML NEB INH PRN ×2 (02:05→08:30)
[2016-11-28 05:46] LABS: BASOPHILS % (AUTO) 0.1 %; MEAN CORPUSCULAR HGB CONC 31.8 g/dL (32.0-36.0)
[2016-11-28 05:48] LABS: HCT - HEMATOCRIT 37.1 % (37.0-47.0); HGB - HEMOGLOBIN 11.8 g/dL (12.0-16.0); LYMPHOCYTES % (AUTO) 5.5 %; MEAN CORPUSCULAR HEMOGLOBIN 28.1 pg (27.0-31.0); MEAN CORPUSCULAR VOLUME 88.4 fL (81.0-99.0); MONOCYTES # (AUTO) 0.6 10^3/uL (0.0-1.0); MONOCYTES % (AUTO) 3.1 %; NEUTROPHILS # (AUTO) 16.9 10^3/uL (1.5-6.6); NEUTROPHILS % (AUTO) 91.3 %; UNCORRECTED WHITE BLOOD COUNT 18.5 x10^3/uL; WHITE BLOOD COUNT 18.5 x10^3/uL (4.8-10.8)
[2016-11-28 06:01] LABS: ALBUMIN/GLOBULIN RATIO 1.4 (1.0-2.2); BILIRUBIN,TOTAL 0.3 mg/dL (0.2-1.0); CALCIUM 9.4 mg/dL (8.5-10.3); CREATININE 0.6 mg/dL (0.4-1.0); MAGNESIUM 1.8 mg/dL (1.7-2.8); POTASSIUM 4.7 mmol/L (3.5-5.0); TOTAL PROTEIN 6.9 g/dL (6.7-8.2)
[2016-11-28] MEDS: LEVOTHYROXINE 125 MCG TABLET PO SCH (06:38)
[2016-11-28] MEDS: SODIUM CHLORIDE FLUSH 0.9% 10 ML SYRINGE IVP SCH (06:38)
--- NOTE | 2016-11-28 06:50 | Discharge Plan ---
Discharge Plan Disposition: 01 Home, Self Care Condition: Good Prescriptions: Doxycycline Monohydrate 100 mg PO BID #14 capsule Fluticasone [Flonase] 1 sprays BRADY BID #1 bottle Nystatin Cream [Mycostatin Cream] 1 applic TOP BID #2 tube Prednisone 10 mg PO DAILY #18 tablet Diet: Diabetic Shower Restrictions: No Weight Bearing: Full Weight Additional Instructions or Follow Up instructions: Make an appt to, see Dr. Ni in the next 5-7 days for follow up on your diabetes and your Asthma. Check your sugar in the am and before dinner. Record and give the log to your PCP. Finish the antibiotic. Do not spend any time in the sun this week. You have improved so you can reduce your oxygen to 2 liters at rest and at night , and 3 liters with activity. Thank you, Dr. Khan No Smoking: If you smoke, Please STOP! Call for help. Follow-up with: Keith Ni MD [Physician No Access] - 1 Week
[2016-11-28] MEDS: INSULIN ASPART 300 UNIT/3 ML PEN SUBQ SCH (08:21)
[2016-11-28] MEDS: LISINOPRIL 5 MG TABLET PO SCH (08:21)
[2016-11-28 08:22] VITALS: BP 121/75
--- NOTE | 2016-11-28 17:16 | DISCHARGE SUMMARY ---
DATE OF ADMISSION: 11/26/2016 DATE OF DISCHARGE: 11/28/2016 PRIMARY CARE PROVIDER: Keith Ni MD. SPECIAL PROCEDURES: None. CONSULTATIONS: None. ADMISSION DIAGNOSES: 1. Status asthmaticus. 2. Acute on chronic respiratory failure. 3. Chronic obstructive pulmonary disease. 4. Diabetes presumptively uncontrolled. 5. Hypertension. 6. Hypothyroidism. DISCHARGE DIAGNOSES: 1. Status asthmaticus resolved. 2. Acute on chronic respiratory failure, improved, acute resolved. 3. Chronic obstructive pulmonary disease. 4. Diabetes uncontrolled with a hemoglobin A1c of 10.5. 5. Hypertension on medication. 6. Hypothyroid on medication. SUMMARY: This is a 56-year-old female with 2 day history of increased shortness of breath. She has rader d chronic respiratory failure on 4 liters of oxygen at home since this past September. The patient has a [facility] medical history also of hypertension, diabetes, noninsulin dependent, and hypothyroidism. The corey ent was admitted to the hospital for status asthmaticus and acute on chronic respiratory failure. The patient was placed on oxygen, steroids, beta agonists, and doxycycline 100 mg twice a day. She im proved over the next night, still requiring multiple beta agonist treatments frequently and on 4 lite rs of oxygen. However, the following day the patient had further improvement and was able to reduce h er at rest oxygen to 2 liters, the lowest she has had in a month, and with activity needed to be 3 li ters. The patient's exam on the day of discharge: VITAL SIGNS: 36.7, 64, 121 18, 98 room air saturation on 3 liters. GENERAL: Well-nourished, well-developed female. EYES: EOM's within normal limits. PERRLA. Nonicteric. MOUTH AND THROAT: Moist mucous membranes. No other pathology of mouth or pharynx. NECK: No lymphadenopathy, no thyromegaly. No trachea deviation. No JVD or bruits. CHEST: The patient's chest wall is nontender, symmetric. No breast exam done. HEART: Normal sinus rhythm. No murmur, rubs, clicks heard. LUNGS: Clear, good air movement bilaterally. There is reduced air movement at the bases. ABDOMEN: Thick abdominal wall. No further exam. EXTREMITIES: Without edema. LABORATORY DATA: She had a white count 18.5, up from 14.5, up from 12.8, determined to be a steroid e ffect. She had H and H of 11 and 37, platelets are 276, sodium is 137, potassium 4.7, chloride 101, C O2 27, BUN 18, creatinine is 0.7, glucose is 237. Calcium 9.4, normal liver enzymes. ALLERGIES: PENICILLIN. DISCHARGE MEDICATIONS: 1. Metformin 1000 mg b.i.d. 2. Pravastatin 20 mg q. p.m. 3. Lorazepam 0.5 mg as needed. 4. Lisinopril 5 mg a day. 5. Levoxyl 125 mcg a day. 6. Duoneb 3 mL q.i.d. 7. Pulmicort 180 mcg b.i.d., hold for now until she is on 10 mg of steroids. 8. Albuterol 2 puffs inhaler as needed for rescue. 9. Prednisone 10 mg a day. 10. Nystatin cream to apply for 14 days to skin folds. 11. Flonase 1 spray each side twice a day. 12. Doxycycline 100 mg b.i.d. for 7 days. The patient is to make an appointment to see Dr. Ni, her regular doctor. Followup issues are her diabetic control, her asthma control, her taper of prednisone and her oxygen needs. It was observed the patient wanted to have more oxygen even though she stated on the day of quinton that she wanted to get off oxygen if at all possible and this would be recommended and guided by her PCP and/or Respiratory Therapy or Pulmonology consult which may be indicated also. Time spent in discharge activity including corroboration with case management, nursing staff, educati on of the patient, 35 minutes. This patient was examined on day of discharge as noted above. JOB #: [id number] EXT JOB #:[id number]
== END 2016-11-28 09:54 | disposition home or self-care (01) | DRG 202 ==
LOC: EDUNIT# → ED 11:00 → MS 14:27
PROVIDERS: ADMIT Internal Medicine; ATTEND Internal Medicine
DX: J45.902 Unspecified asthma with status asthmaticus (principal); J96.20 Acute and chronic respiratory failure, unspecified whether with hypoxia or hypercapnia; J44.9 Chronic obstructive pulmonary disease, unspecified; E11.65 Type 2 diabetes mellitus with hyperglycemia; I10 Essential (primary) hypertension; E03.9 Hypothyroidism, unspecified; E78.00 Pure hypercholesterolemia, unspecified; Z79.84 Long term (current) use of oral hypoglycemic drugs; Z99.81 Dependence on supplemental oxygen; Z79.51 Long term (current) use of inhaled steroids; Z79.899 Other long term (current) drug therapy
CPT/HCPCS: 36415; 71010; 80053; 83036; 83690; 83735; 85025; 94640; 94761; 99283; 99284

== ENCOUNTER 2016-12-20 12:29 | Emergency (ER) | payer MEDICAID ==
[2016-12-20 12:55] VITALS: BP 113/73
--- NOTE | 2016-12-20 13:47 | ED Physician Documentation ---
PD HPI UPPER EXT INJURY - Stated complaint Stated Complaint: FOREIGN OBJ IN ARM - Chief complaint Chief Complaint: Ext Problem - History obtained from History obtained from: Patient - History of Present Illness Location: Other (She was admitted for status asthmaticus about 3 weeks ago, had an IV and just distal to the left antecubital fossa which has persistent tenderness and swelling and firmness and she is concerned there may be a retained piece of IV or something there.) Review of Systems Constitutional: denies: Fever, Chills Cardiac: denies: Chest pain / pressure, Palpitations Respiratory: denies: Dyspnea GI: denies: Abdominal Pain, Nausea, Vomiting PD PAST MEDICAL HISTORY - Past Medical History Past Medical History: Yes Cardiovascular: Hypertension, High cholesterol Respiratory: Asthma Endocrine/Autoimmune: Type 2 diabetes, HyPOthyroidism HEENT: Chronic sinusitis - Past Surgical History Past Surgical History: Yes /[employer]: Hysterectomy HEENT: Rhinoplasty - Present Medications Home Medications: Ambulatory Orders Medication Instructions Recorded Confirmed Ipratropium/Albuterol Sulfate 3 ml IH QID PRN 08/10/16 12/20/16 [Iprat-Albut 0.5-3(2.5) mg/3 ml] Levothyroxine [Synthroid] 125 mcg PO QDAC 08/10/16 12/20/16 Lisinopril [Prinivil] 5 mg PO DAILY 08/10/16 12/20/16 Metformin HCl [Metformin HCl ER] 1,000 mg PO BID 08/10/16 12/20/16 Pravastatin Sodium [Pravachol] 20 mg PO QPM 08/10/16 12/20/16 Albuterol 2.5 mg PO BID PRN 09/11/16 12/20/16 Albuterol Sulf [Ventolin Hfa 2 puffs INH Q4H PRN 09/11/16 12/20/16 Inhaler] Budesonide [Pulmicort Flexhaler] 180 mcg INH BID 09/11/16 12/20/16 Lorazepam 0.5 mg PO PRN PRN #30 tablet 09/15/16 12/20/16 Fluticasone [Flonase] 1 sprays BRADY BID #1 bottle 11/28/16 12/20/16 Prednisone 10 mg PO DAILY #18 tablet 11/28/16 12/20/16 - Allergies Allergies/Adverse Reactions: Allergies Allergy/AdvReac Type Severity Reaction Status Date / Time Penicillins AdvReac Unknown Verified 12/20/16 13:11 - Social History Does the pt smoke?: No Smoking Status: Former smoker Does the pt drink ETOH?: No Does the pt have substance abuse?: No - Immunizations Immunizations are current?: Yes - POLST Patient has POLST: No POLST Status: Full Code PD ED PE NORMAL - Vitals Vital signs reviewed: Yes - General General: Alert and oriented X 3 (on O2) - Respiratory Respiratory: No respiratory distress - Extremities Extremities: Other (Focal phlebitis just distal to L AC fossa. No redness.) - Neuro Neuro: Alert and oriented X 3, Normal speech - Psych Psych: Normal mood, Normal affect Results - Vitals Vitals: Vital Signs - 24 hr 12/20/16 12:50 Temperature 36.3 C L Heart Rate 89 Respiratory 18 Rate Blood Pressure 113/73 O2 Saturation 98 Oxygen O2 Source Nasal cannula - Rads (name of study) L forearm Radiology: EMP read contemporaneously (NAD, no fb) Departure - Departure Disposition: 01 Home, Self Care Clinical Impression: Phlebitis after infusion Qualifiers: Encounter type: initial encounter Qualified Code(s): T80.1XXA - Vascular complications following infusion, transfusion and therapeutic injection, initial encounter Condition: Good Record reviewed to determine appropriate education?: Yes Instructions: ED Phlebitis Superficial
--- NOTE | 2016-12-20 14:38 | XRAY Report ---
EXAM: LEFT FOREARM RADIOGRAPHY EXAM DATE: 12/20/2016 02:26 PM. CLINICAL HISTORY: Concern for retained FB, L AC fossa. COMPARISON: None. TECHNIQUE: 2 views. FINDINGS: Bones: Normal. No fractures or bone lesions. Joints: Normal. No effusions or subluxations in the visualized wrist or elbow joints. Soft Tissues: Unremarkable. IMPRESSION: Normal forearm radiography. [facility] Referring Provider Line: [phone] SITE ID: [id number]
== END 2016-12-20 14:45 | disposition home or self-care (01) ==
LOC: ED 12:29
DX: T80.1XXA Vascular complications following infusion, transfusion and therapeutic injection, initial encounter (principal); I10 Essential (primary) hypertension; E11.9 Type 2 diabetes mellitus without complications; E78.00 Pure hypercholesterolemia, unspecified; E03.9 Hypothyroidism, unspecified; Z79.84 Long term (current) use of oral hypoglycemic drugs; Z87.891 Personal history of nicotine dependence
CPT/HCPCS: 99282; 99283

== ENCOUNTER 2017-02-05 06:58 | Outpatient (CLI) | payer MEDICAID | END 2017-02-05 06:59 | disposition critical access hospital (66) | LOC: EMS 06:58 | PROVIDERS: ATTEND Surgery | DX: R06.00 Dyspnea, unspecified (principal) | CPT/HCPCS: A0425; A0427 ==

== ENCOUNTER 2017-02-05 07:18 | Emergency (ER) | payer MEDICAID ==
[2017-02-05] MEDS ORDERED: MAGNESIUM SULFATE 2 GRAM 2 GM/50 ML BAG IV ONE ×2 (07:37→07:48)
--- NOTE | 2017-02-05 07:40 | ED Physician Documentation ---
PD HPI DYSPNEA - Stated complaint Stated Complaint: ASTHMA - Chief complaint Chief Complaint: Resp - History obtained from History obtained from: Patient - History of Present Illness Timing - onset: Enter time (0500), Today Timing - onset during: Rest Timing - duration: Hours Timing - details: Abrupt onset, Still present Inciting event(s): URI Improved by: O2, Inhaler/neb, Steroids Worsened by: Exertion, Coughing Associated symptoms: Cough, Wheezing, Chest pain / discomfort Similar symptoms before: Diagnosis (COPD) Recently seen: Admitted (10 weeks ago for COPD exacerbation.) - Additional information Additional information: 54-year-old female with oxygen dependent COPD was last admitted into the hospital 10 weeks ago for exacerbation of COPD. She states that over the past several days she has had an increase in her symptoms she began to take some prednisone and she thought she was doing a bit better yesterday and awoke this morning at 05:00 with dyspnea that did not respond to 3 treatments. She called 911 she received a DuoNeb treatment in route to the hospital with some improvement she also received 125 mg of Solu-Medrol. Review of Systems Constitutional: denies: Fever Eyes: denies: Decreased vision Ears: denies: Ear pain Nose: reports: Congestion Throat: denies: Sore throat Cardiac: reports: Chest pain / pressure. 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 HEENT: Rhinoplasty - Present Medications Home Medications: Ambulatory Orders Medication Instructions Recorded Confirmed Ipratropium/Albuterol Sulfate 3 ml IH QID PRN 08/10/16 02/05/17 [Iprat-Albut 0.5-3(2.5) mg/3 ml] Levothyroxine [Synthroid] 125 mcg PO QDAC 08/10/16 02/05/17 Lisinopril [Prinivil] 5 mg PO DAILY 08/10/16 02/05/17 Metformin HCl [Metformin HCl ER] 1,000 mg PO BID 08/10/16 02/05/17 Pravastatin Sodium [Pravachol] 20 mg PO QPM 08/10/16 02/05/17 Albuterol 2.5 mg PO BID PRN 09/11/16 02/05/17 Albuterol Sulf [Ventolin Hfa 2 puffs INH Q4H PRN 09/11/16 02/05/17 Inhaler] Budesonide [Pulmicort Flexhaler] 180 mcg INH BID 09/11/16 02/05/17 Lorazepam 0.5 mg PO PRN PRN #30 tablet 09/15/16 02/05/17 Fluticasone [Flonase] 1 sprays BRADY BID #1 bottle 11/28/16 02/05/17 Prednisone 10 mg PO DAILY #18 tablet 11/28/16 02/05/17 Levofloxacin [Levaquin] 500 mg PO DAILY #10 tablet 02/05/17 predniSONE [Deltasone] 10 mg PO DAILY #26 tablet 02/05/17 - Allergies Allergies/Adverse Reactions: Allergies Allergy/AdvReac Type Severity Reaction Status Date / Time Penicillins AdvReac Unknown Verified 12/20/16 13:11 - Social History Does the pt smoke?: No Smoking Status: Never smoker Does the pt drink ETOH?: No Does the pt have substance abuse?: No - Immunizations Immunizations are current?: Yes - POLST Patient has POLST: No POLST Status: Full Code PD ED PE NORMAL - Vitals Vital signs reviewed: Yes - General General: Alert and oriented X 3, Well developed/nourished, Other (tachypniec at rest ) - Neck Neck: Supple, no meningeal sign, No bony TTP - Cardiac Cardiac: RRR, No murmur - Respiratory Respiratory: Other (tachypneic at rest with diminished breath sounds and scattered wheezing) - Abdomen Abdomen: Soft, Non tender - Derm Derm: Normal color, Warm and dry, No rash - Extremities Extremities: No deformity, No edema - Neuro Neuro: Alert and oriented X 3, No motor deficit, No sensory deficit, Normal speech - Psych Psych: Normal mood, Normal affect Results - Vitals Vitals: Vital Signs - 24 hr 02/05/17 07:25 Temperature 36.4 C L Heart Rate 97 Respiratory 24 Rate Blood Pressure 142/77 H O2 Saturation 100 Oxygen O2 Source Nasal cannula - Labs Labs: Laboratory Tests 02/05/17 02/05/17 02/05/17 07:46 07:46 07:46 WBC 15.7 H RBC 4.64 Hgb 12.9 Hct 40.1 MCV 86.4 MCH 27.9 MCHC 32.3 RDW 14.2 Plt Count 396 MPV 8.0 Neut # 9.9 H Lymph # 4.2 H [place] # 0.9 Eos # 0.5 Baso # 0.1 Absolute Nucleated RBC 0.01 Nucleated RBC % 0.0 Sodium 138 Potassium 3.6 Chloride 97 L Carbon Dioxide 26 Anion Gap 15.0 H BUN 15 Creatinine 0.8 Estimated GFR (MDRD) 75 L Glucose 210 H Calcium 9.5 Magnesium 1.8 Total Bilirubin 0.4 AST 28 ALT 27 Alkaline Phosphatase 68 Troponin I < 0.04 Total Protein 7.3 Albumin 4.1 Globulin 3.2 Albumin/Globulin Ratio 1.3 Lipase 41 - Rads (name of study) 2 view chest Radiology: Prelim report reviewed (Impression: 1. Lungs are clear except for small calcified granuloma in the left lower lobe superior segment, unchanged since the 08/09/2016 radiographs.), EMP read indepedently, See rad report PD MEDICAL DECISION MAKING - ED course Complexity details: considered differential, d/w patient ED course: 56-year-old female with oxygen dependent COPD has had an exacerbation and is given a DuoNeb treatment as well as 125 mg Solu-Medrol in route to the hospital. Her chest x-ray is without evidence of acute infiltrate. Departure - Departure Disposition: 01 Home, Self Care Clinical Impression: Moderate COPD (chronic obstructive pulmonary disease) Condition: Stable Instructions: ED COPD Flare Follow-Up: Keith Ni MD [Physician No Access] - Prescriptions: Levofloxacin [Levaquin] 500 mg PO DAILY #10 tablet predniSONE [Deltasone] 10 mg PO DAILY #26 tablet
[2017-02-05 07:52] LABS: BASOPHILS # (AUTO) 0.1 10^3/uL (0.0-0.1); BASOPHILS % (AUTO) 0.6 %; EOSINOPHILS # (AUTO) 0.5 10^3/uL (0.0-0.7); EOSINOPHILS % (AUTO) 3.3 %; HCT - HEMATOCRIT 40.1 % (37.0-47.0); HGB - HEMOGLOBIN 12.9 g/dL (12.0-16.0); LYMPHOCYTES # (AUTO) 4.2 10^3/uL (1.5-3.5); MEAN CORPUSCULAR HEMOGLOBIN 27.9 pg (27.0-31.0); MEAN CORPUSCULAR HGB CONC 32.3 g/dL (32.0-36.0); MEAN CORPUSCULAR VOLUME 86.4 fL (81.0-99.0); MONOCYTES # (AUTO) 0.9 10^3/uL (0.0-1.0); MONOCYTES % (AUTO) 5.8 %; NEUTROPHILS # (AUTO) 9.9 10^3/uL (1.5-6.6); NEUTROPHILS % (AUTO) 63.3 %; RED BLOOD COUNT 4.64 10^6/uL (4.20-5.40); RED CELL DISTRIBUTION WIDTH 14.2 % (12.0-15.0); UNCORRECTED WHITE BLOOD COUNT 15.7 x10^3/uL; WHITE BLOOD COUNT 15.7 x10^3/uL (4.8-10.8)
[2017-02-05 08:06] LABS: ALBUMIN/GLOBULIN RATIO 1.3 (1.0-2.2); BILIRUBIN,TOTAL 0.4 mg/dL (0.2-1.0); CALCIUM 9.5 mg/dL (8.5-10.3); CREATININE 0.8 mg/dL (0.4-1.0); MAGNESIUM 1.8 mg/dL (1.7-2.8); POTASSIUM 3.6 mmol/L (3.5-5.0); TOTAL PROTEIN 7.3 g/dL (6.7-8.2)
[2017-02-05] MEDS ORDERED: SODIUM CHLORIDE FLUSH 0.9% 10 ML SYRINGE IVP ONE (08:06)
--- NOTE | 2017-02-05 08:13 | XRAY Preliminary Report ---
Exam: XR Chest 2 View PA/LAT IMPRESSION: 1. Lungs are clear except for small calcified granuloma in the left lower lobe superior segment, unch anged since the 08/09/2016 radiographs. [facility] SITE ID: [id number]
--- NOTE | 2017-02-05 08:16 | XRAY Report ---
EXAM: CHEST RADIOGRAPHY EXAM DATE: 02/05/2017 07:57 AM. CLINICAL HISTORY: 56-year-old woman with cough and dyspnea. COMPARISON: 08/09/2016. TECHNIQUE: 2 views. FINDINGS: Lungs/Pleura: 6 mm nodular opacity is again demonstrated in the left lungs appear segment, not signif icantly changed compared to the 08/09/2016 chest x-ray and 09/11/2016 CT. Dense calcium dictation is consistent with granuloma. Lungs are otherwise clear. No pleural effusion. Mediastinum: Heart and mediastinal contours are unremarkable. Other: None. IMPRESSION: 1. Lungs are clear except for small calcified granuloma in the left lower lobe superior segment, unch anged since the 08/09/2016 radiographs. [facility] Referring Provider Line: [phone] SITE ID: [id number]
[2017-02-05] MEDS ORDERED: cefTRIAXone 1 GM in SODIUM CHLORIDE 0.9% MINIBAG 100 ML IV STA (08:39)
[2017-02-05] MEDS ORDERED: cefTRIAXone 1 GM VIAL ONE (08:53)
[2017-02-05 09:50] VITALS: BP 127/67
== END 2017-02-05 09:51 | disposition home or self-care (01) ==
LOC: ED 07:18
DX: J44.1 Chronic obstructive pulmonary disease with (acute) exacerbation (principal); Z99.81 Dependence on supplemental oxygen; I10 Essential (primary) hypertension; E78.00 Pure hypercholesterolemia, unspecified; E11.9 Type 2 diabetes mellitus without complications; E03.9 Hypothyroidism, unspecified
CPT/HCPCS: 36415; 71020; 80053; 83690; 83735; 84484; 85025; 96365; 96367; 99283; 99284

== ENCOUNTER 2017-02-20 15:10 | Outpatient (CLI) | payer MEDICAID | END 2017-02-20 15:11 | disposition critical access hospital (66) | LOC: EMS 15:10 | PROVIDERS: ATTEND Surgery | DX: R06.02 Shortness of breath (principal); R05 Cough | CPT/HCPCS: A0425; A0427 ==

== ENCOUNTER 2017-02-20 15:30 | Observation (INO) | payer MEDICAID ==
[2017-02-20] MEDS ORDERED: DEXAMETHASONE 10 MG/ML VIAL IVP STA (15:43)
[2017-02-20] MEDS ORDERED: MAGNESIUM SULFATE 2 GRAM 2 GM/50 ML BAG IV ONE ×2 (15:44→15:52)
[2017-02-20] MEDS ORDERED: DEXAMETHASONE 10 MG/ML VIAL ONE (15:52)
--- NOTE | 2017-02-20 16:32 | XRAY Preliminary Report ---
Exam: XR CHEST 2 VIEW PA/LAT IMPRESSION: Calcified granuloma, left midlung, otherwise unremarkable 2-view chest radiography. [facility] SITE ID: [id number]
--- NOTE | 2017-02-20 16:35 | XRAY Report ---
EXAM: CHEST RADIOGRAPHY EXAM DATE: 02/20/2017 04:03 PM. CLINICAL HISTORY: Cough and shortness of breath. COMPARISON: None. TECHNIQUE: 2 views. FINDINGS: Lungs/Pleura: Calcified granuloma, left mid lung, otherwise no focal opacities evident. No pleural ef fusion. No pneumothorax. Normal volumes. Mediastinum: Heart and mediastinal contours are unremarkable. Other: No bony abnormality identified. IMPRESSION: Calcified granuloma, left midlung, otherwise unremarkable 2-view chest radiography. [facility] Referring Provider Line: [phone] SITE ID: [id number]
[2017-02-20] MEDS ORDERED: SODIUM CHLORIDE FLUSH 0.9% 10 ML SYRINGE IVP ONE (17:00)
[2017-02-20] MEDS ORDERED: ALBUTEROL NEB 2.5 MG/3 ML INH STA (17:31)
--- NOTE | 2017-02-20 17:31 | ED Physician Documentation ---
History of Present Illness - Stated complaint Stated Complaint: SOA - Chief complaint Chief Complaint: Resp - Additonal information Additional information: hx from pt 56 f long hx asthma recent cough cold and exacerbated her asthma already has home O2 already took steroids at home already used her home neb X 12 today still so SOA she had to call 911 no leg edema Review of Systems Constitutional: denies: Fever, Chills Throat: denies: Sore throat Cardiac: denies: Chest pain / pressure Respiratory: reports: Dyspnea, Cough GI: denies: Abdominal Pain, Nausea, Vomiting Musculoskeletal: denies: Extremity swelling Endocrine: denies: Easy bruising / bleeding Immunocompromised: denies: Immunocompromised PD PAST MEDICAL HISTORY - Past Medical History Past Medical History: Yes Cardiovascular: Hypertension, High cholesterol Respiratory: Asthma Endocrine/Autoimmune: Type 2 diabetes, HyPOthyroidism HEENT: Chronic sinusitis - Past Surgical History 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 HEENT: Rhinoplasty - Present Medications Home Medications: Ambulatory Orders Medication Instructions Recorded Confirmed Ipratropium/Albuterol Sulfate 3 ml IH QID PRN 08/10/16 02/20/17 [Iprat-Albut 0.5-3(2.5) mg/3 ml] Levothyroxine [Synthroid] 125 mcg PO QDAC 08/10/16 02/20/17 Lisinopril [Prinivil] 5 mg PO DAILY 08/10/16 02/20/17 Metformin HCl [Metformin HCl ER] 1,000 mg PO BID 08/10/16 02/20/17 Pravastatin Sodium [Pravachol] 20 mg PO QPM 08/10/16 02/20/17 Albuterol 2.5 mg PO BID PRN 09/11/16 02/20/17 Albuterol Sulf [Ventolin Hfa 2 puffs INH Q4H PRN 09/11/16 02/20/17 Inhaler] Budesonide [Pulmicort Flexhaler] 180 mcg INH BID 09/11/16 02/20/17 Lorazepam 0.5 mg PO PRN PRN #30 tablet 09/15/16 02/20/17 Fluticasone [Flonase] 1 sprays BRADY BID #1 bottle 11/28/16 02/20/17 Prednisone 10 mg PO DAILY #18 tablet 11/28/16 02/20/17 Levofloxacin [Levaquin] 500 mg PO DAILY #10 tablet 02/05/17 02/20/17 predniSONE [Deltasone] 10 mg PO DAILY #26 tablet 02/05/17 02/20/17 - Allergies Allergies/Adverse Reactions: Allergies Allergy/AdvReac Type Severity Reaction Status Date / Time Penicillins AdvReac Unknown Verified 12/20/16 13:11 - Social History Does the pt smoke?: No Smoking Status: Never smoker Does the pt drink ETOH?: No Does the pt have substance abuse?: No - Immunizations Immunizations are current?: Yes - POLST Patient has POLST: No POLST Status: Full Code PD ED PE NORMAL - Vitals Vital signs reviewed: Yes - General General: Alert and oriented X 3 - HEENT HEENT: PERRL - Cardiac Cardiac: RRR - Respiratory Respiratory: Other (ana wheezing) - Abdomen Abdomen: Soft, Non tender - Derm Derm: Normal color - Extremities Extremities: No deformity, Normal ROM s pain, No edema, No calf tenderness / cord - Neuro Neuro: Alert and oriented X 3 Results - Vitals Vitals: Vital Signs - 24 hr 02/20/17 02/20/17 02/20/17 15:31 16:26 16:57 Temperature 36.7 C 36.8 C Heart Rate 108 H 99 95 Respiratory 24 18 22 Rate Blood Pressure 130/81 H 112/75 122/70 O2 Saturation 95 95 93 02/20/17 17:50 Temperature Heart Rate 111 H Respiratory 18 Rate Blood Pressure O2 Saturation Oxygen O2 Source Nasal cannula Oxygen Flow Rate 3 - Labs Labs: Laboratory Tests 02/20/17 16:00 Influenza A (Rapid) Negative Influenza B (Rapid) Negative Influenza Types A,B Ag - - Rads (name of study) CXR Radiology: See rad report (granuloma - no acute - pt aware) PD MEDICAL DECISION MAKING - ED course ED course: acute asthma exacerbation arrived with 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
[2017-02-20] MEDS ORDERED: ALBUTEROL NEB 2.5 MG/3 ML INH ONE (17:51)
[2017-02-20] MEDS ORDERED: BUDESONIDE 0.5 MG/2 ML NEB INH SCH (19:00)
[2017-02-20] MEDS ORDERED: LORazepam 0.5 MG TABLET PO PRN (19:43)
[2017-02-20] MEDS ORDERED: SODIUM CHLORIDE FLUSH 0.9% 10 ML SYRINGE IVP PRN (19:48)
[2017-02-20] MEDS ORDERED: ACETAMINOPHEN 325 MG TABLET PO PRN (19:48)
[2017-02-20] MEDS ORDERED: ONDANSETRON 4 MG/2 ML VIAL IVP PRN (19:48)
[2017-02-20] MEDS ORDERED: levoFLOXacin 500 MG/100 ML 500 MG/100 ML BAG IV SCH (20:00)
[2017-02-20 20:34] LABS: BASOPHILS # (AUTO) 0.1 10^3/uL (0.0-0.1); BASOPHILS % (AUTO) 0.6 %; EOSINOPHILS % (AUTO) 0.1 %; HCT - HEMATOCRIT 41.7 % (37.0-47.0); HGB - HEMOGLOBIN 13.2 g/dL (12.0-16.0); LYMPHOCYTES # (AUTO) 0.2 10^3/uL (1.5-3.5); LYMPHOCYTES % (AUTO) 1.8 %; MEAN CORPUSCULAR HEMOGLOBIN 27.6 pg (27.0-31.0); MEAN CORPUSCULAR HGB CONC 31.6 g/dL (32.0-36.0); MEAN CORPUSCULAR VOLUME 87.3 fL (81.0-99.0); MEAN PLATELET VOLUME 8.6 fL (7.9-10.8); MONOCYTES # (AUTO) 0.1 10^3/uL (0.0-1.0); MONOCYTES % (AUTO) 0.5 %; NEUTROPHILS # (AUTO) 13.7 10^3/uL (1.5-6.6); RED BLOOD COUNT 4.77 10^6/uL (4.20-5.40); RED CELL DISTRIBUTION WIDTH 14.7 % (12.0-15.0); UNCORRECTED WHITE BLOOD COUNT 14.1 x10^3/uL; WHITE BLOOD COUNT 14.1 x10^3/uL (4.8-10.8)
--- NOTE | 2017-02-20 20:49 | HISTORY & PHYSICAL EXAMINATION ---
DATE OF ADMISSION: 02/20/2017 TIME: 8:12 p.m. CODE STATUS: FULL CODE. PRIMARY CARE PHYSICIAN: Dr. Keith Garzon. EXAM LIMITATIONS: None. RECORDS REVIEWED: Yes. SOURCE OF INFORMATION: The patient. CHIEF COMPLAINT: Shortness of breath. Note: The patient does not have an advanced directive. HISTORY OF PRESENT ILLNESS: The patient, a 56-year-old female, began having shortness of breath last night that became progressively worse. She also had a productive cough. She finally came into the ER. DRUG ALLERGIES: PENICILLIN. HOME MEDICATIONS 1. Albuterol sulfate 2 puffs every 4 hours. 2. Pulmicort 1 spray twice a day. 3. Levothyroxine 125 mcg 1 tab p.o. every day. 4. Lisinopril 5 mg 1 tab p.o. every day. 5. Lorazepam 0.5 mg 1 tab p.o. p.r.n. agitation. 6. Metformin 1000 mg 1 tab p.o. with breakfast and dinner. 7. Pravastatin 20 mg 1 tab p.o. at bedtime. 8. Prednisone 10 mg 1 tab p.o. every day. PAST MEDICAL HISTORY: Hypothyroidism, type 2 diabetes mellitus, hyperlipidemia, hypertension, anxiety, allergies, sinus problems, COPD, and status asthmaticus. PAST SURGICAL HISTORY: Sinus surgery, tonsillectomy, and tubal ligation. FAMILY HISTORY: Father, paternal grandmother, maternal grandmother and brother: Diabetes mellitus. Mother: Thyroid disease. Father: Coronary artery disease. Maternal grandmother: Coronary artery disease. SOCIAL HISTORY: She is . She has 3 children. She never smoked. She never drank alcohol. She does not use recreational drugs. She lives at home with her boyfriend. REVIEW OF SYSTEMS RESPIRATORY: Productive coughing, chest pain with coughing and shortness of breath. HEART: No palpitations. No chest pain. ABDOMEN: No constipation, no diarrhea, no bloating, no nausea, no vomiting. URINARY: No burning urine, no frequency. HEAD: Frontal headache. EYES: No blurred vision. EARS: No tinnitus, no ear pain. NOSE: No runny nose. THROAT: No pain or redness. MUSCULOSKELETAL: Lower back pain. JOINTS: No joint pain. NEUROLOGICAL: No dementia, no aphasias, no limb weakness. WEAKNESS/FATIGUE: Yes. FEVER: No. PHYSICAL EXAMINATION VITAL SIGNS: Temperature of 36.8, a pulse of 111, a respiratory rate of 18, a blood pressure of 122/70, O2 saturation of 93% on nasal cannula. GENERAL: She is alert, cooperative, and well nourished. HEAD: Atraumatic, normocephalic. EYES: PERRLA, EOMI. NECK: Supple. No JVD. No bruits, no thyroid enlargement. HEART: Tachycardia. LUNGS: Rhonchi and congestion. ABDOMEN: Positive for bowel sounds, soft, nontender. No rebound, no guarding. EXTREMITIES: Warm. No edema, +2 pedal pulses 5/5 muscle strength in upper and lower extremities. NEUROLOGIC: Oriented x3. Follows commands and moves all 4 extremities. LABORATORY DATA: Influenza A and B negative. CBC and CMP are pending. ASSESSMENT AND PLAN 1. Chronic obstructive pulmonary disease. Will be treated with Pulmicort, DuoNeb and IV Solu-Medrol. 2. Upper respiratory infection. Will be treated with IV Levaquin. 3. Sinus problems. Will be treated with Flonase. 4. Hypertension. Will be treated with lisinopril. 5. Anxiety. Will be treated with lorazepam. 6. Diabetes mellitus. Will be treated with sliding scale NovoLog with meals and metformin. 7. Hyperlipidemia. Will be treated with pravastatin. 8. Hypothyroidism. Will be treated with levothyroxine. 9. For DVT prophylaxis, she will be on Lovenox and SCDs. She will get IV Protonix to prevent stress ulcers. 10. Her anticipated length of stay: She is in observation. JOB #: [id number] EXT JOB #:[id number] [place]
[2017-02-20 20:57] LABS: ALBUMIN/GLOBULIN RATIO 1.3 (1.0-2.2); BILIRUBIN,TOTAL 0.5 mg/dL (0.2-1.0); BUN - BLOOD UREA NITROGEN 9 mg/dL (6-20); CALCIUM 9.4 mg/dL (8.5-10.3); CARBON DIOXIDE - CO2 23 mmol/L (21-32); CHLORIDE 94 mmol/L (101-111); CREATININE 0.8 mg/dL (0.4-1.0); GFR - MDRD 75 (>89); GLUCOSE 385 mg/dL (70-100); POTASSIUM 4.4 mmol/L (3.5-5.0); SODIUM 135 mmol/L (135-145); TOTAL PROTEIN 7.5 g/dL (6.7-8.2)
[2017-02-20] MEDS ORDERED: PRAVASTATIN SODIUM 20 MG PO SCH (21:00)
[2017-02-20] MEDS ORDERED: METFORMIN HCL 1000 MG PO SCH (21:00)
[2017-02-20] MEDS: SODIUM CHLORIDE FLUSH 0.9% 10 ML SYRINGE IVP SCH (21:04)
[2017-02-20] MEDS: methylPREDNISolone SUCCINATE 40 MG/ML VIAL IVP SCH (21:04)
[2017-02-20] MEDS: IPRATROPIUM/ALBUTEROL 3 ML NEB INH PRN (21:20)
[2017-02-20] MEDS: FLUTICASONE NASAL SPRAY NAS SCH (21:20)
[2017-02-20] MEDS: INSULIN ASPART 300 UNIT/3 ML PEN SUBQ SCH (21:20)
[2017-02-20] MEDS: BENZOCAINE/MENTHOL LOZENGE MM PRN (21:20)
[2017-02-20 21:43] LABS: HEMOGLOBIN A1C 1.29 g/dL
[2017-02-21] MEDS: IPRATROPIUM/ALBUTEROL 3 ML NEB INH PRN ×3 (01:35→10:34)
[2017-02-21] MEDS: BENZOCAINE/MENTHOL LOZENGE MM PRN (02:05)
[2017-02-21 05:46] LABS: BASOPHILS % (AUTO) 0.3 %; EOSINOPHILS % (AUTO) 0.1 %; HCT - HEMATOCRIT 40.9 % (37.0-47.0); HGB - HEMOGLOBIN 13.2 g/dL (12.0-16.0); LYMPHOCYTES # (AUTO) 0.7 10^3/uL (1.5-3.5); LYMPHOCYTES % (AUTO) 4.7 %; MEAN CORPUSCULAR HEMOGLOBIN 28.1 pg (27.0-31.0); MEAN CORPUSCULAR HGB CONC 32.2 g/dL (32.0-36.0); MEAN CORPUSCULAR VOLUME 87.3 fL (81.0-99.0); MEAN PLATELET VOLUME 8.5 fL (7.9-10.8); MONOCYTES # (AUTO) 0.3 10^3/uL (0.0-1.0); MONOCYTES % (AUTO) 2.1 %; NEUTROPHILS # (AUTO) 14.5 10^3/uL (1.5-6.6); NEUTROPHILS % (AUTO) 92.8 %; RED BLOOD COUNT 4.69 10^6/uL (4.20-5.40); RED CELL DISTRIBUTION WIDTH 14.5 % (12.0-15.0); UNCORRECTED WHITE BLOOD COUNT 15.6 x10^3/uL; WHITE BLOOD COUNT 15.6 x10^3/uL (4.8-10.8)
[2017-02-21 05:58] LABS: CALCIUM 9.7 mg/dL (8.5-10.3); CREATININE 0.7 mg/dL (0.4-1.0); POTASSIUM 4.6 mmol/L (3.5-5.0)
[2017-02-21] MEDS: SODIUM CHLORIDE FLUSH 0.9% 10 ML SYRINGE IVP SCH (06:58)
[2017-02-21] MEDS ORDERED: PANTOPRAZOLE 40 MG VIAL IVP SCH (07:00)
[2017-02-21] MEDS ORDERED: LEVOTHYROXINE 125 MCG TABLET PO SCH (07:00)
--- NOTE | 2017-02-21 08:14 | Discharge Plan ---
Discharge Plan Disposition: Home, Self Care Condition: Fair Prescriptions: Montelukast [Singulair] 10 mg PO QPM #30 tablet Prednisone 60 mg PO DAILY #30 tablet Diet: Regular Activity Restrictions: Activity as Tolerated Shower Restrictions: No Driving Restrictions: No Additional Instructions or Follow Up instructions: You were placed in observation because of another episode of asthma. As you have explained to me this is the sixth or seventh admission this year for asthma. You are in the process of seeing a agricultural loan officer and an ceramic research engineer. They think that you may have rhinosinusitis causing your asthma but your ear nose and throat doctor says that your sinuses are clear. I am sending you home with prednisone 60 mg a day. You will be seeing your doctor tomorrow. Please make sure that your prednisone is adjusted. You might need to stay on it for a month or two as they taper it down. I have also added Singulair and an effort to help your cough. It is a pill that you take once a day. It is an anti-inflammatory to reduce the sense of inflammation you feeling your throat and hopefully make that "tickle" go away. No Smoking: If you smoke, Please STOP! Call for help. Follow-up with: Nabor Garzon PA-C [Credentialed Staff Provider] -
[2017-02-21] MEDS ORDERED: LISINOPRIL 5 MG TABLET PO SCH (09:00)
[2017-02-21] MEDS ORDERED: ENOXAPARIN 40 MG/0.4 ML SYRINGE SUBQ SCH (09:00)
[2017-02-21] MEDS ORDERED: POLYETHYLENE GLYCOL 3350 17 GM PACKET PO SCH (09:00)
[2017-02-21] MEDS ORDERED: INSULIN ASPART 300 UNIT/3 ML PEN SUBQ ONE (10:15)
[2017-02-21] MEDS: INSULIN ASPART 300 UNIT/3 ML PEN SUBQ SCH (10:18)
[2017-02-21] MEDS: methylPREDNISolone SUCCINATE 40 MG/ML VIAL IVP SCH (10:26)
[2017-02-21] MEDS: FLUTICASONE NASAL SPRAY NAS SCH (10:26)
[2017-02-21 10:32] VITALS: BP 128/81
[2017-02-21] MEDS ORDERED: metFORMIN 500 MG TABLET PO SCH (11:00)
--- NOTE | 2017-02-21 18:38 | DISCHARGE SUMMARY ---
DATE OF ADMISSION: 02/20/2017 DATE OF DISCHARGE: 02/21/2017 DISCHARGE DIAGNOSES: 1. Chronic obstructive pulmonary disease exacerbation. 2. Asthma. 3. Upper respiratory infection. 4. Uncontrolled type 2 diabetes mellitus, without complication. 5. Hypothyroidism. DISCHARGE MEDICATIONS: 1. Albuterol via nebulizer b.i.d.. 2. Ventolin HFA 2 puffs q.4h. p.r.n.. 3. DuoNeb via nebulizer q.i.d. p.r.n.. 4. Synthroid 125 mcg daily. 5. Lisinopril 5 mg daily. 6. Lorazepam 0.5 mg every day as needed up to 3 times a day. 7. Metformin 1000 mg p.o. b.i.d.. 8. Pravastatin 20 mg daily. 9. Prednisone 60 mg daily. 10. Singular 10 mg daily is a new prescription. All prescriptions above are the same as before. HOSPITAL COURSE: The patient is a dashawn 56-year-old [place] female who came to live on the [facility], probably about 1-1/2 years ago. [place] In the recent past, she has been seen in the emergency room almost every month. She has been seen by Pulmonology, Ear, Nose and Throat. Pulmonology is starting to wonder if her problem is more r hinosinusitis causing the asthma, but the ear, nose and throat doctor is describing that her sinuses are normal and that maybe she has reflux disease, and that was the cause of her asthma. She describes her asthma exacerbations as a tickle in the throat. She can actually feel a tickle in the vocal cord s and back of throat area. That will then progress to a daily cough productive of clear, thick, stick y phlegm. She does not have fevers, chills, hemoptysis. But that tickle in the back of her throat jackson l then start causing uncontrolled coughing which then induces the asthma and she is unable to control it at home. The priming powder premix blender has tried her on Pulmicort. That did not work. Flonase did not work. S he has been tried on Claritin and that did not work. She wonders if there is anything we can give her to help her with this tickle in her throat. With this current episode her significant other got sick with a cold. She then got it. She spent glenn ral days in bed with sinus congestion, postnasal drip, eustachian tube dysfunction, but then the coug h started. The dreaded cough from the tickle in the throat that is unstopping. She ended up having co ughing spasms and needing to use the metered dose inhaler and albuterol inhaler up to 12 times before she came to the emergency room. She was seen by Dr. Nano Carcamo. She was afebrile, mildly tachycar dic at 108. Normotensive and 95% oxygenation on 3 liters. She arrived with DuoNeb running even after getting 12 nebs prior to admission. Steroids and magnesium were added with some effect. She was still wheezing but had diminished breath sounds, and would start wheezing with deep breathing or cough. As such the patient was brought in for observation for acute COPD exacerbation with asthma. We continue d steroids. This resulted in uncontrolled glucose. She received sliding scale insulin for that. At th e time of discharge, she had no further wheezing. She still had mild rhinorrhea and it sounded like s he had some nasal congestion, but there was nothing copious about it. No rhinorrhea, no coryza. Back of throat was cobblestone but not injected. She has shotty anterior cervical adenopathy at discharge. Lungs were clear at discharge with prolong in exhalation phase. She is not tachypneic, nontachycardi c. She felt like she was back to her baseline and wanted to go home. While she was discharged in stable condition with the above exam, there is still the question of why this woman keeps decompensating in the outpatient setting. It is a relief to know that she is seeing ENT and Pulmonology. She is due to see her primary care provider tomorrow. She is to be discharged on steroids 60 mg and I have asked her to make sure the primary care provider starts tapering her as th ey feel necessary. She might need a slower taper as opposed to 1-2 weeks because she so easily decomp ensate. She also may need to add new medication. Her sugars are high because of the steroids. During this stay chest x-ray was negative. A1c was 10.9%. She was maintained on her usual medications with regards to the thyroid. JOB #: [id number] EXT JOB #:[id number]
[2017-02-21] MEDS ORDERED: PRAVASTATIN 10 MG TABLET PO SCH (21:00)
== END 2017-02-21 10:55 | disposition home or self-care (01) ==
LOC: EDUNIT# → ED 15:30 → OBS 19:48
PROVIDERS: ATTEND Specialist
DX: J44.1 Chronic obstructive pulmonary disease with (acute) exacerbation (principal); J06.9 Acute upper respiratory infection, unspecified; E11.65 Type 2 diabetes mellitus with hyperglycemia; T38.0X5A Adverse effect of glucocorticoids and synthetic analogues, initial encounter; E03.9 Hypothyroidism, unspecified; I10 Essential (primary) hypertension; E78.5 Hyperlipidemia, unspecified; R51 Headache; F41.9 Anxiety disorder, unspecified; Z79.899 Other long term (current) drug therapy; Z79.52 Long term (current) use of systemic steroids; Z79.84 Long term (current) use of oral hypoglycemic drugs
CPT/HCPCS: 36415; 71020; 80048; 80053; 83036; 85025; 87275; 87276; 94640; 94664; 96365; 96367; 96375; 96376; 99284; A9270; G0378; J7613; J7620; 99283

== ENCOUNTER 2023-12-31 19:39 | Emergency (ER) | payer MEDICARE, MEDICAID ==
--- NOTE | 2023-12-31 19:54 | ED Physician Documentation ---
History of Present Illness - Stated complaint Stated Complaint: SEVERE CONGESTION - Chief complaint Chief Complaint: General - Additonal information Additional information: 63-year-old female presents emergency department for increased cough and congestion as well as worsening left ear pain. Patient says that she has been feeling ill now for about a week or so she started to feel better and then tried to blow her nose to pop her ears and developed severe pain in her left ear since then she has been having decreased muffled hearing and severe ongoing left ear pain with ongoing cough and congestion with some sore throat. Unsure if she has had any fevers or chills no nausea or vomiting. 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 HEENT: Rhinoplasty - Present Medications Home Medications: Ambulatory Orders Medication Instructions Recorded Confirmed Levothyroxine [Synthroid] 150 mcg PO QDAC 08/10/16 03/09/21 Metformin HCl [Metformin HCl ER] 1,000 mg PO BID 08/10/16 03/09/21 Pravastatin Sodium [Pravachol] 20 mg PO QPM 08/10/16 03/09/21 Montelukast [Singulair] 10 mg PO QPM #30 tablet 02/21/17 03/09/21 Adalimumab [Humira] 40 mg SQ Q14D 03/09/21 03/09/21 Cholecalciferol [Vitamin D3] 5,000 unit PO DAILY 03/09/21 03/09/21 Dupilumab [Dupixent Pen] 300 mg SQ Q14D 03/09/21 03/09/21 Empagliflozin [Jardiance] 10 mg PO DAILY 03/09/21 03/09/21 Fluticasone/Vilanterol [Breo 1 each IH DAILY 03/09/21 03/09/21 Ellipta 200-25 Mcg INH] Fluticasone/Vilanterol [Breo 1 inh IH DAILY 03/09/21 03/09/21 Ellipta 200-25 Mcg Inhalr] Glipizide [Glipizide ER] 20 mg PO DAILY 03/09/21 03/09/21 Losartan Potassium 25 mg PO DAILY 11/02/21 11/02/21 Magnesium Oxide [Magnesium] 400 mg PO DAILY 03/09/21 03/09/21 Amox/Clav 875/125 [Augmentin 1 tablet PO Q12H 10 Days #20 tablet 12/31/23 875/125 Tab] - Allergies Allergies/Adverse Reactions: Allergies Allergy/AdvReac Type Severity Reaction Status Date / Time Penicillins AdvReac Unknown Verified 12/31/23 19:43 - Social History Does the pt smoke?: No Smoking Status: Never smoker Does the pt drink ETOH?: No Does the pt have substance abuse?: No - Immunizations Immunizations are current?: Yes - POLST Patient has POLST: No POLST Status: Full Code PD ED PE NORMAL - Vitals Vital signs reviewed: Yes - General General: Alert and oriented X 3, No acute distress, Well developed/nourished - HEENT HEENT: Other (normal right TM Left TM ruptured with dried blood, tenderness with movement of the ear) - Neck Neck: Supple, no meningeal sign, No JVD - Cardiac Cardiac: RRR - Respiratory Respiratory: No respiratory distress, Clear bilaterally - Abdomen Abdomen: Normal bowel sounds, Soft, Non tender, No organomegaly - Derm Derm: Normal color, Warm and dry, No rash Results - Vitals Vitals: Vital Signs - 24 hr 12/31/23 12/31/23 19:43 20:24 Temperature 37.0 C 37 C Heart Rate 88 84 Respiratory 16 16 Rate Blood Pressure 140/76 H 123/67 O2 Saturation 98 99 Oxygen O2 Source Room air - Labs Labs: Laboratory Tests 12/31/23 19:52 Nasal Adenovirus (PCR) NOT DETECTED Nasal B. parapertussis DNA (PCR) NOT DETECTED Nasal Coronavir 229E PCR NOT DETECTED Nasal Coronavir HKU1 PCR NOT DETECTED Nasal Coronavir NL63 PCR NOT DETECTED Nasal Coronavir OC43 PCR NOT DETECTED Nasal Enterovir/Rhinovir PCR NOT DETECTED Nasal Influenza B PCR NOT DETECTED Nasal Influenza A PCR NOT DETECTED Nasal Parainfluen 1 PCR NOT DETECTED Nasal Parainfluen 2 PCR NOT DETECTED Nasal Parainfluen 3 PCR NOT DETECTED Nasal Parainfluen 4 PCR NOT DETECTED Nasal RSV (PCR) NOT DETECTED Nasal B.pertussis DNA PCR NOT DETECTED Nasal C.pneumoniae (PCR) NOT DETECTED [place] Human Metapneumo PCR NOT DETECTED Nasal M.pneumoniae (PCR) NOT DETECTED Nasal SARS-CoV-2 (PCR) NOT DETECTED PD Medical Decision Making - ED course ED course: 63-year-old female presents emergency department for ongoing cough and congestion chief complaint is left ear pain. Respiratory panel is negative for all upper respiratory infections that we test her sore throat we have given her 10 mg of Dexameth and Tylenol In which patient had significant alleviation of symptoms after this. She has no exudation on her throat no cervical swelling. Upon further examination of her left ear she appears to have a ruptured tympanic membrane with dried blood. I have started her on Augmentin for this ear infection here in the emergency department if she were to be infected with strep this would also cover that as well also did not feel the need to also test for that. Patient was taught how to manage her symptoms at home she is told to follow-up with ear nose and throat soon as possible she already has ear nose and throat doctor that she is established with she is [place] within about today's ER visit and to keep her left ear clean and dry do not get water in it at all. Patient given strict ER return precautions all questions answered Departure - Departure Disposition: 01 Home, Self Care Clinical Impression: Viral syndrome, Acute otitis media, Ruptured tympanic membrane Instructions: ED Rupture Eardrum Infec, ED Viral Syndrome Prescriptions: Amox/Clav 875/125 [Augmentin 875/125 Tab] 1 tablet PO Q12H 10 Days #20 tablet Comments: Thank you for trusting us with your care. You appear to have something called an acute otitis media, a middle ear infection most likely due to the virus that you have experienced. We gave you 10 mg of dexamethasone to help with your throat pain as well as 1000 mg of Tylenol and started you on a medication called amoxicillin/clavulanate also known as Augmentin. He took the first dose here in the emergency department you will take this medication twice a day for the next 10 days. It is important to keep the ears completely dry (you may place a cotton ball coated in petroleum jelly in the external ear canal during showering) and avoid swimming for 2-3 weeks. Because perforation predisposes the inner ear to infection, it is important for the ear to be kept dry. Avoid forceful nose blowing. 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 Please come back to the ER for having any worsening symptoms after you have been on antibiotics for a total of 48 hours. Forms: PCP List Discharge Date/Time: 12/31/23 20:36
[2023-12-31] MEDS: ACETAMINOPHEN 500 MG TABLET PO STA (20:18)
[2023-12-31] MEDS: AMOX/CLAV 875 MG/125 MG TABLET PO STA (20:19)
[2023-12-31] MEDS: CHERRY SYRUP 10 ML UDC PO ONE (20:19)
[2023-12-31] MEDS: DEXAMETHASONE 10 MG/ML VIAL PO STA (20:19)
[2023-12-31 20:25] VITALS: BP 123/67; O2SAT 99
[2023-12-31 20:59] LABS: CORONAVIRUS 229E-RESP PCR NOT DETECTED; CORONAVIRUS HKU1-RESP PCR NOT DETECTED; CORONAVIRUS NL63-RESP PCR NOT DETECTED; CORONAVIRUS OC43-RESP PCR NOT DETECTED; HUMAN METAPNEUMOVIRUS NOT DETECTED; INFLUENZA A- RESP PCR PANEL NOT DETECTED; INFLUENZA B - RESP PCR PANEL NOT DETECTED; PARAINFLUENZA VIRUS 1 NOT DETECTED; PARAINFLUENZA VIRUS 2 NOT DETECTED; RHINOVIRUS/ENTEROVIRUS NOT DETECTED; SARS-CoV-2 -RESP PCR PANEL NOT DETECTED
[2023-12-31 21:00] LABS: B. PARAPERTUSSIS- RESP PCR PAN NOT DETECTED; B. PERTUSSIS- RESP PCR PANEL NOT DETECTED; C. PNEUMONIAE- RESP PCR PANEL NOT DETECTED; M. PNEUMONIAE- RESP PCR PANEL NOT DETECTED; PARAINFLUENZA VIRUS 3 NOT DETECTED; PARAINFLUENZA VIRUS 4 NOT DETECTED; RSV- RESP PCR PANEL NOT DETECTED
== END 2023-12-31 20:36 | disposition home or self-care (01) ==
LOC: ED 19:39
DX: H66.92 Otitis media, unspecified, left ear (principal); H72.92 Unspecified perforation of tympanic membrane, left ear; B34.9 Viral infection, unspecified
CPT/HCPCS: 87633; 99283; A9270